=== PATIENT | female | born 1985 | race Caucasian/White ===

== ENCOUNTER 2016-11-16 20:19 | Emergency (ER) | payer SELFPAY ==
[2016-11-16 20:26] VITALS: BP 149/88
--- NOTE | 2016-11-16 20:50 | UC ---
Epistaxis Nasal HPI - HPI Summary HPI Summary: patient reports falling while sleep walking this am---has a bruise and laceration on her nose - History of Current Complaint Chief Complaint: UCTrauma Stated Complaint: FACIAL BRUISE Time Seen by Provider: 11/16/16 20:40 Hx Obtained From: Patient Hx Last Menstrual Period: 6 yrs ago ?: No Onset/Duration: Sudden Onset, Lasting Hours Timing: Constant Severity Initially: Moderate Severity Currently: Moderate Aggravating Factor(s): Nasal Trauma Associated Signs And Symptoms: Positive: Bruising - Allergies/Home Medications Allergies/Adverse Reactions: Allergies Allergy/AdvReac Type Severity Reaction Status Date / Time Latex Allergy Rash Verified 11/16/16 20:26 Home Medications: Home Medications NK [No Home Medications Reported] 11/16/16 [History Confirmed 11/16/16] PMH/Surg Hx/FS Hx/Imm Hx Previously Healthy: No Psychological History: Anxiety, Post Traumatic Stress Disorder, Other Other Psychological History: Substance abuse disorder - Surgical History Surgical History: Unable to Obtain/Confirm Surgery Procedure, Year, and Place: x 2 - Family History Known Family History: Positive: None Family History: no medical issues reported - Social History Occupation: Unemployed Lives: With Family Alcohol Use: unable to obtain Alcohol Amount: unable to obtain Substance Use Type: Cocaine, Heroin, Synthetic Drugs, Prescribed Substance Use Comment - Amount & Last Used: today Smoking Status (MU): Heavy Every Day Tobacco Smoker Household Exposure Type: Cigarettes - Immunization History Most Recent Tetanus Shot: less then 5 yrs Review of Systems Constitutional: Negative Skin: Bruising, Other - laceration on top/extending to left side of nose Eyes: Negative ENT: Negative Respiratory: Negative Cardiovascular: Negative Gastrointestinal: Negative Genitourinary: Negative Motor: Negative Neurovascular: Negative Musculoskeletal: Negative Neurological: Negative Psychological: Negative All Other Systems Reviewed And Are Negative: Yes Physical Exam Triage Information Reviewed: Yes Appearance: Ill-Appearing - chronic, Pain Distress, Thin Vital Signs: Initial Vital Signs Temp 97.9 F 11/16/16 20:20 Pulse 128 11/16/16 20:20 Resp 18 11/16/16 20:20 BP 149/88 11/16/16 20:20 Pulse Ox 97 11/16/16 20:20 Vital Signs Reviewed: Yes Eye Exam: Normal Eyes: Positive: Conjunctiva Clear, Other: - perrla, eomi ENT Exam: Normal ENT: Positive: Normal ENT inspection, Pharynx normal, TMs normal. Negative: Nasal congestion, Nasal drainage, Trismus, Muffled/hoarse voice Dental Exam: Normal - negative for nasal hematoma Neck exam: Normal Neck: Positive: Supple, Nontender Respiratory Exam: Normal Respiratory: Positive: Chest non-tender, Lungs clear, Normal breath sounds, No respiratory distress, No accessory muscle use Cardiovascular Exam: Normal Cardiovascular: Positive: RRR, No Murmur, Pulses Normal, Brisk Capillary Refill Musculoskeletal Exam: Normal Musculoskeletal: Positive: Strength Intact, ROM Intact, No Edema Neurological Exam: Normal Neurological: Positive: Alert, Muscle Tone Normal, Fatigued Psychological Exam: Normal Psychological: Positive: Normal Response To Family Skin: Positive: Other - 4 cm curse laceration on top of nose bridge leaning toward left side of nose Procedures - Laceration/Wound Repair 1 Location: face Description: Linear Length, Depth and Shape: curved Betadine Prep?: No Irrigated w/ Saline (ccs): 250 Laceration/Wound Explored: clean Closure: SteriStrips - patient refused sutures Layer Closure?: No Sterile Dressing Applied?: No Epistaxis Nasal Course/Dx - Course Course Of Treatment: steri strip repair of nose, ice for contusion, follow with pcp - Differential Dx/Diagnosis Differential Diagnosis/HQI/PQRI: Trauma, Other - hypertension due to cicumstance no history, polysubstance dependence Provider Diagnoses: facial contusion, 4 cm laceration steri repair, htn due to circumstance no history, polysubstance addiction disorder Discharge - Discharge Plan Condition: Stable Disposition: HOME Patient Education Materials: Steristrips (ED), Nasal Contusion (ED) Forms: *Work Release Referrals: [facility] [Provider Group] - If Needed
--- NOTE | 2016-11-16 21:41 | RAD ---
Indication: Injury with laceration across the nose. Comparison: No relevant prior exams available [place] [facility] [place]. Technique: Routine views of the nasal bones. AP, Snow, and bilateral oblique orbital views obtained. Report: Intact nasal bones. Soft tissue swelling over the bridge of the nose. The orbital margins and zygomatic arches appear intact. No facial fracture evident. LEFT nose nare piercing noted. Normally aerated paranasal sinuses. Mild leftward deviation of the nasal septum. IMPRESSION: Negative for nasal bone or orbital margin fracture.
--- NOTE | 2016-11-16 21:41 | RAD ---
Indication: Injury with laceration across the nose. Comparison: No relevant prior exams available on the [facility] [place] for comparison. Technique: Routine views of the nasal bones. AP, Snow, and bilateral oblique orbital views obtained. Report: Intact nasal bones. Soft tissue swelling over the bridge of the nose. The orbital margins and zygomatic arches appear intact. No facial fracture evident. LEFT nose nare piercing noted. Normally aerated paranasal sinuses. Mild leftward deviation of the nasal septum. IMPRESSION: Negative for nasal bone or orbital margin fracture.
[2016-11-16] MEDS ORDERED: Benzoin Compound STICK TOPICAL ONE (21:49)
== END 2016-11-16 22:15 | disposition home or self-care (01) ==
LOC: UCEAST 20:19
DX: S01.81XA Laceration without foreign body of other part of head, initial encounter (principal); I10 Essential (primary) hypertension; F41.9 Anxiety disorder, unspecified; F43.10 Post-traumatic stress disorder, unspecified; F12.90 Cannabis use, unspecified, uncomplicated; F11.90 Opioid use, unspecified, uncomplicated; F17.210 Nicotine dependence, cigarettes, uncomplicated; Z91.040 Latex allergy status; W18.30XA Fall on same level, unspecified, initial encounter; Y93.9 Activity, unspecified; Y92.9 Unspecified place or not applicable
CPT/HCPCS: 12011; 70160; 70200; 99211; G0463

== ENCOUNTER 2018-07-16 16:10 | Emergency (ER) | payer OTHER ==
--- NOTE | 2018-07-16 17:04 | ED ---
Lower Extremity - HPI Summary HPI Summary: Pt is a 32 y/o female who presents to the ED c/o groin pain. For the past 4 days shes had intermittent right groin pain. Pt describes the pain as cramping and is made worse with movement, particularly standing up or sitting down. When she is still she denies any pain but it always returns with movement. She denies any fall or physical trauma. Pt also c/o numbness and paresthesia of her LLE, and an area of induration to her left anterior chest. She is an IV drug user and reports injecting methamphetamine and heroin into this site. Pt also notes that she sometimes injects into her lateral right groin crease. Pt also states that she has been fatigued lately due to recent stress with her boyfriend. Pt denies any fever, chills, diaphoresis, erythema of eyes, sore throat, CP, SOB, cough, abdominal pain, N/V, dysuria, hematuria, myalgia, edema , rash, or dizziness. PMHx opiate dependence, Hep C. She sees Avelina Redd NP at [facility]. - History of Current Complaint Chief Complaint: EDGeneral Stated Complaint: SOMETHING WRONG WITH LEG/GENITAL AREA PER PT Time Seen by Provider: 07/16/18 16:57 Hx Obtained From: Patient Hx Last Menstrual Period: 6 yrs ago Mechanism Of Injury: Unknown Onset of Pain: Days - 4 Onset/Duration: Still Present Severity Currently: None Pain Intensity: 0 Pain Scale Used: 0-10 Numeric Timing: Intermittent Location: Is Discrete @ - right groin Aggravating Factor(s): Movement - Allergies/Home Medications Allergies/Adverse Reactions: Allergies Allergy/AdvReac Type Severity Reaction Status Date / Time latex Allergy Rash Verified 07/16/18 19:18 Home Medications: Home Medications Gabapentin 800 mg PO QID 07/16/18 [History Confirmed 07/16/18] PMH/Surg Hx/FS Hx/Imm Hx Sensory History: Denies: Hx Legally Blind, Hx Deafness Opthamlomology History: Denies: Hx Legally Blind Neurological History: Denies: Hx Seizures Psychiatric History: Reports: Hx Substance Abuse Denies: Hx Anxiety, Hx Depression - Surgical History Surgery Procedure, Year, and Place: x 2 Infectious Disease History: Unable to Obtain/Confirm Infectious Disease History: Reports: Hx Hepatitis - C Denies: Traveled Outside the [place] in Last 30 Days - Family History Known Family History: Negative: Other - suicides - Social History Alcohol Use: Occasionally Alcohol Amount: unable to obtain Hx Substance Use: Yes Substance Use Type: Reports: Cocaine, Heroin, Synthetic Drugs, Prescribed Substance Use Comment - Amount & Last Used: today Hx Tobacco Use: Yes Smoking Status (MU): Heavy Every Day Tobacco Smoker Review of Systems Positive: Fatigue. Negative: Fever, Chills, Skin Diaphoresis Negative: Erythema Negative: Sore Throat Negative: Chest Pain Negative: Shortness Of Breath, Cough Negative: Abdominal Pain, Vomiting, Nausea Negative: dysuria, hematuria Positive: Myalgia - right groin pain. Negative: Edema Negative: Rash Neurological: Other - NEGATIVE: dizziness Positive: Paresthesia - LLE, Numbness - LLE All Other Systems Reviewed And Are Negative: Yes Physical Exam - Summary Physical Exam Summary: Constitutional: Well-developed, Well-nourished, Alert. (-) Distressed Skin: Warm, Dry, Numerous track laureano and picking behavior scars over BLE, Indurated area on left upper anterior chest wall, No fluctuance or overlying erythema HENT: Normocephalic; Atraumatic Eyes: Conjunctiva normal Neck: Musculoskeletal ROM normal neck. (-) JVD, (-) Stridor, (-) Tracheal deviation Cardio: Rhythm regular, rate normal, Heart sounds normal; Intact distal pulses; The pedal pulses are 2+ and symmetric. Radial pulses are 2+ and symmetric. (-) Murmur Pulmonary/Chest wall: Effort normal. (-) Respiratory distress, (-) Wheezes, (-) Rales Abd: Soft, (-) tenderness, (-) Distension, (-) Guarding, (-) Rebound Musculoskeletal: (-) Edema Lymph: (-) Cervical adenopathy, (+) Inguinal lymphadenopathy Neuro: Alert, Oriented x3 Psych: Mood and affect Normal Triage Information Reviewed: Yes Vital Signs On Initial Exam: Initial Vitals Temp Pulse Resp BP Pulse Ox 98.8 F 102 20 124/86 97 07/16/18 16:13 07/16/18 16:13 07/16/18 16:13 07/16/18 16:13 07/16/18 16:13 Vital Signs Reviewed: Yes Diagnostics - Vital Signs Vital Signs Temp Pulse Resp BP Pulse Ox 07/16/18 16:13 98.8 F 102 20 124/86 97 - Laboratory Result Diagrams: 07/16/18 17:45 07/16/18 17:45 Lab Statement: Any lab studies that have been ordered have been reviewed, and results considered in the medical decision making process. - Radiology Stormy Doppler Radiology Interpretation Completed By: Radiologist Summary of Radiographic Findings: NO EVIDENCE FOR DEEP VENOUS THROMBOSIS. ED physician has reviewed this report. - EKG 18:20 Cardiac Rate: Tachycardia - 102 bpm EKG Rhythm: Sinus Tachycardia Summary of EKG Findings: No STEMI Re-Evaluation - Re-Evaluation First Eval Re-Evaluation Time: 21:42 Comment: The patient wants to leave against medical advice because she is worried about going through withdrawal. I suggested that we can help by providing Suboxone or Opiates, with she declined. She is unwilling to wait for MRI results. I informed her of the risks of disability, , amputation, and inability to walk. I asked her to return to the ED immediately if she changes her mind. Lower Extremity Course/Dx - Course Course Of Treatment: Pt is a 32 y/o female who presents to the ED c/o groin pain. For the past 4 days shes had intermittent right groin pain. Pt describes the pain as cramping and is made worse with movement, particularly standing up or sitting down. When she is still she denies any pain but it always returns with movement. She denies any fall or physical trauma. Pt also c/o numbness and paresthesia of her LLE, and an area of induration to her left anterior chest. She is an IV drug user and reports injecting methamphetamine and heroin into this site. Pt also notes that she sometimes injects into her lateral right groin crease. Pt also states that she has been fatigued lately due to recent stress with her boyfriend. Pt denies any fever, chills, diaphoresis, erythema of eyes, sore throat, CP, SOB, cough, abdominal pain, N/V, dysuria, hematuria, myalgia, edema, rash, or dizziness. An EKG reveals sinus tachycardia 102 bpm, no STEMI. Stormy Doppler reveals, per radiologist, NO EVIDENCE FOR DEEP VENOUS THROMBOSIS. Test results with no significant abnormalities. In the ED course the patient was given Vancomycin, Sodium Chloride, Ondansetron, and Morphine. The patient wants to leave AMA. I informed her that she risks disability, , amputation, and the inability to walk if she does not take my recommendation to stay in the hospital for use of IV antibiotics. She states that she is worried about withdrawal, and she was informed that we can combat the withdrawal with Suboxone and Opiates, but she refused. I advised that she return to the ED if she changes her mind. Patient will be discharged with prescription for Amoxicillin and follow up from [facility] and Avelina Redd. The patient is agreeable with this plan. - Diagnoses Provider Diagnoses: Septic arthritis Discharge - Sign-Out/Discharge Documenting (check all that apply): Patient Departure - discharge Patient Received Moderate/Deep Sedation with Procedure: No - Discharge Plan Condition: Fair Disposition: AGAINST MEDICAL ADVICE Prescriptions: Amoxicillin/Clavulanate TAB* [Augmentin TAB 875*] 875 mg PO BID #42 tab Patient Education Materials: Septic Arthritis (DC) Referrals: [facility],. [Z.BUSINESS, APPLICATION, OTHER] - Avelina Redd, BUSINESS PROCESS COORDINATOR [Nurse Practitioner] - Additional Instructions: You are leaving against medical advice. You are risking disability, , inability to walk, and amputation. Please return to the ED immediately if you change your mind. Please follow up with Avelina Redd as soon as possible - Attestation Statements Document Initiated by Scribe: Yes Documenting Scribe: Ryanne Sanchez Provider For Whom Katie is Documenting (Include Credential): Forest Fernandez MD Scribe Attestation: Ryanne Tinsley, scribed for Forest Fernandez MD on 07/16/18 at 2155. Status of Scribe Document: Ready
[2018-07-16 18:01] LABS: ABS Basophils 0 10^3/ul (0-0.2); ABS Eosinophils 0.1 10^3/ul (0-0.6); ABS Lymphocytes 2.7 10^3/ul (1.0-4.8); ABS Monocytes 0.8 10^3/ul (0-0.8); ABS Neutrophils 6.8 10^3/ul (1.5-7.7); ABS Nucleated RBC 0 10^3/ul; Eosinophil % 1.3 %; Hematocrit 36 % (33-41); Hemoglobin 12.3 g/dL (12.0-16.0); Lymphocyte % 25.5 %; Mean Corpuscular HGB Conc 34 g/dL (31-36); Mean Corpuscular Hemoglobin 29 pg (27-31); Mean Corpuscular Volume 84 fL (80-97); Mean Platelet Volume 8.2 fL (7.4-10.4); Nucleated Red Blood Cells % 0; Platelet Count 276 10^3/uL (150-450); Red Blood Count 4.27 10^6 /uL (3.70-4.87); Red Cell Distribution Width 13 % (10.5-15); White Blood Count 10.4 10^3/uL (3.5-10.8)
[2018-07-16] MEDS ORDERED: Vancomycin(*) 1,250 MG in NS 0.9% 250 ML* 250 ML IVPB ONE (18:04)
[2018-07-16] MEDS ORDERED: NS 0.9% 1000 ML** 2,000 ML IV ONE (18:04)
[2018-07-16 18:15] LABS: Activated Partial Thrombo Time 31.9 seconds (26.0-36.3); Albumin 3.7 g/dL (3.2-5.2); Albumin/Globulin Ratio 1.1 (1-3); BUN/Creatinine Ratio 14.1 (8-20); C Reactive Protein 51.91 mg/L (<8.01); Calcium 9.3 mg/dL (8.6-10.3); EGFR African American 130.1 (>60); EGFR Non-African American 107.5 (>60); Globulin 3.4 g/dL (2-4); INR 0.96 (0.77-1.02); Potassium 3.8 mmol/L (3.5-5.0); Total Bilirubin 0.3 mg/dL (0.2-1.0); Total Protein 7.1 g/dL (6.4-8.9)
[2018-07-16] MEDS ORDERED: Ondansetron INJ* 2 MG/ML VIAL IV ONE (18:23)
[2018-07-16] MEDS ORDERED: Morphine 4 MG/ML VIAL (1 ml) 4 MG/ML VIAL IV ONE (18:24)
[2018-07-16 21:57] VITALS: BP 0/0
== END 2018-07-16 21:56 | disposition left against medical advice (07) ==
LOC: ED 16:10
DX: M00.9 Pyogenic arthritis, unspecified (principal); R00.0 Tachycardia, unspecified; Z72.0 Tobacco use; B19.20 Unspecified viral hepatitis C without hepatic coma; Z53.21 Procedure and treatment not carried out due to patient leaving prior to being seen by health care provider
CPT/HCPCS: 36415; 80053; 83605; 85025; 85610; 85730; 86140; 87040; 93005; 96361; 96365; 96366; 99284; J2270; J2405; J3370

== ENCOUNTER 2018-07-19 16:48 | Observation (INO) | payer OTHER ==
[2018-07-19] MEDS ORDERED: Vancomycin(*) 1,250 MG in NS 0.9% 250 ML* 250 ML IVPB ONE (16:49)
--- NOTE | 2018-07-19 17:18 | ED ---
Skin Complaint - HPI Summary HPI Summary: Pt is a 32 y/o F presenting to the ED with a chief complaint of an abscess on her R knee. She was referred from [facility] for R hip effusion. She also reports some lower abd pain. Pt denies any fever, chills, erythema of eyes, sore throat, CP, SOB, cough, N/V, dysuria, hematuria, myalgia, edema, or dizziness. - History of Current Complaint Chief Complaint: EDExtremityLower Time Seen by Provider: 07/19/18 16:54 Stated Complaint: ABD PAIN PER PT Hx Obtained From: Patient Hx Last Menstrual Period: 6 yrs ago Onset/Duration: Started Days Ago, Still Present Skin Exposure Onset/Duration: Days Ago Timing: Constant, Lasting Days Onset Severity: Mild Current Severity: None Pain Intensity: 0 Pain Scale Used: 0-10 Numeric Skin Location: Other: - R knee Character: Swelling, Pruritus, Pain, Redness, Raised Aggravating Symptom(s): Touch Alleviating Symptom(s): Nothing Associated Signs & Symptoms: Abdominal Pain - Allergy/Home Medications Allergies/Adverse Reactions: Allergies Allergy/AdvReac Type Severity Reaction Status Date / Time latex Allergy Rash Verified 07/19/18 16:59 PMH/Surg Hx/FS Hx/Imm Hx Cardiovascular History: Denies: Hx Pacemaker/ICD Sensory History: Denies: Hx Legally Blind, Hx Deafness, Hx Hearing Aid Opthamlomology History: Denies: Hx Legally Blind Neurological History: Denies: Hx Seizures Psychiatric History: Reports: Hx Substance Abuse Denies: Hx Anxiety, Hx Depression, Hx Panic Disorder - Surgical History Surgery Procedure, Year, and Place: x 2 Infectious Disease History: No Infectious Disease History: Reports: Hx Hepatitis - C Denies: Traveled Outside the [place] in Last 30 Days - Family History Known Family History: Negative: Other - suicides - Social History Alcohol Use: Occasionally Alcohol Amount: unable to obtain Hx Substance Use: Yes Substance Use Type: Reports: Cocaine, Heroin, Synthetic Drugs, Prescribed Substance Use Comment - Amount & Last Used: today Hx Tobacco Use: Yes Smoking Status (MU): Heavy Every Day Tobacco Smoker Review of Systems Negative: Fever, Chills Negative: Erythema Negative: Sore Throat Negative: Palpitations, Chest Pain Negative: Shortness Of Breath, Cough Positive: Abdominal Pain. Negative: Vomiting, Nausea Negative: dysuria, hematuria Negative: Myalgia, Edema Positive: Other - abscess on R knee. Negative: Rash Neurological: Negative - dizziness All Other Systems Reviewed And Are Negative: Yes Physical Exam - Summary Physical Exam Summary: Constitutional: Well-developed, Well-nourished, Alert. (-) Distressed Skin: Warm, Dry. Abscess on R knee. HENT: Normocephalic; Atraumatic Eyes: Conjunctiva normal Neck: Musculoskeletal ROM normal neck. (-) JVD, (-) Stridor, (-) Tracheal deviation Cardio: Rhythm regular, rate normal, Heart sounds normal; Intact distal pulses; The pedal pulses are 2+ and symmetric. Radial pulses are 2+ and symmetric. (-) Murmur Pulmonary/Chest wall: Effort normal. (-) Respiratory distress, (-) Wheezes, (-) Rales Abd: Soft, (-) tenderness, (-) Distension, (-) Guarding, (-) Rebound Musculoskeletal: (-) Edema Lymph: (-) Cervical adenopathy Neuro: Alert, Oriented x3 Psych: Mood and affect Normal Triage Information Reviewed: Yes Vital Signs On Initial Exam: Initial Vitals Temp Pulse Resp BP Pulse Ox 97.0 F 92 14 117/84 97 07/19/18 16:56 07/19/18 16:56 07/19/18 16:56 07/19/18 16:56 07/19/18 16:56 Vital Signs Reviewed: Yes Diagnostics - Vital Signs Vital Signs Temp Pulse Resp BP Pulse Ox 07/19/18 16:56 97.0 F 92 14 117/84 97 - Laboratory Result Diagrams: 07/19/18 17:39 Lab Statement: Any lab studies that have been ordered have been reviewed, and results considered in the medical decision making process. Course/Dx - Course Course Of Treatment: Pt is a 32 y/o F presenting to the ED with a chief complaint of an abscess on her R knee. She was referred from [facility]. Pt denies any fever, chills, erythema of eyes, sore throat, CP, SOB, cough, abdominal pain, N/V, dysuria, hematuria, myalgia, edema, or dizziness. Compared to the exam of her last visit, her hip pain and inguinal lymphadenopathy have resolved. She developed an abscess that she subsequently drained, which could have resolved her presentation, but she has a small hip effusion that could be seeded by bacteria. She should be admitted to the hospital for infectious disease consultation. The pt is agreeable with this plan and will be admitted under Avelina Redd NP, with a dx of R hip effusion. - Diagnoses Provider Diagnoses: Right hip joint effusion Discharge - Sign-Out/Discharge Documenting (check all that apply): Patient Departure - Discharge Plan Condition: Stable Disposition: ADMITTED TO [facility] - Attestation Statements Document Initiated by Scribe: Yes Documenting Scribe: Zeynep Bull Provider For Whom Katie is Documenting (Include Credential): Forest Fernandez MD. Scribe Attestation: Zeynep Tinsley, scribed for Forest Fernandez MD. on 07/19/18 at 1757. Status of Scribe Document: Ready
[2018-07-19 17:50] LABS: ABS Basophils 0.1 10^3/ul (0-0.2); ABS Eosinophils 0.2 10^3/ul (0-0.6); ABS Lymphocytes 2.8 10^3/ul (1.0-4.8); ABS Monocytes 0.6 10^3/ul (0-0.8); ABS Nucleated RBC 0 10^3/ul; Hematocrit 38 % (33-41); Lymphocyte % 36.9 %; Mean Corpuscular HGB Conc 35 g/dL (31-36); Mean Corpuscular Hemoglobin 29 pg (27-31); Mean Corpuscular Volume 84 fL (80-97); Mean Platelet Volume 7.5 fL (7.4-10.4); Nucleated Red Blood Cells % 0; Platelet Count 375 10^3/uL (150-450); Red Blood Count 4.51 10^6 /uL (3.70-4.87); Red Cell Distribution Width 12 % (10.5-15); White Blood Count 7.6 10^3/uL (3.5-10.8)
[2018-07-19] MEDS ORDERED: Piperacillin/Tazobac ADVAN(*) 3.375 GM in NS 0.9% 100 ML* 100 ML IVPB ONE (18:09)
[2018-07-19 18:14] LABS: Albumin 3.8 g/dL (3.2-5.2); Albumin/Globulin Ratio 1.1 (1-3); BUN/Creatinine Ratio 10.6 (8-20); C Reactive Protein 19.32 mg/L (<8.01); Calcium 9.2 mg/dL (8.6-10.3); EGFR African American 125.6 (>60); EGFR Non-African American 103.8 (>60); Globulin 3.5 g/dL (2-4); Potassium 3.7 mmol/L (3.5-5.0); Total Bilirubin 0.2 mg/dL (0.2-1.0); Total Protein 7.3 g/dL (6.4-8.9)
[2018-07-19] MEDS ORDERED: HYDROmorphone TAB* 4 MG PO ONE (18:18)
[2018-07-19] MEDS ORDERED: HYDROmorphone INJ1* 1 MG/ML SYRINGE IV SLOW PU PRN (18:20)
[2018-07-19 18:21] LABS: INR 0.94 (0.77-1.02)
[2018-07-19] MEDS ORDERED: LORazepam TAB(*) 0.5 MG PO PRN (18:21)
[2018-07-19] MEDS ORDERED: cloNIDine TAB* 0.1 MG PO PRN (18:25)
[2018-07-19] MEDS ORDERED: Acetaminophen TAB* 325 MG PO PRN (18:29)
[2018-07-19] MEDS ORDERED: Ondansetron INJ* 2 MG/ML VIAL IV PRN (18:29)
[2018-07-19] MEDS ORDERED: Nicotine Inhaler* 10 MG AMP INH PRN (18:35)
[2018-07-19] MEDS ORDERED: Zosyn per Pharmacy* NOTE FOLLOW UP SCH (19:00)
[2018-07-19] MEDS ORDERED: Vancomycin per Pharmacy* NOTE FOLLOW UP SCH (19:00)
[2018-07-19] MEDS ORDERED: Nicotine Inhaler* 10 MG AMP ONE (19:00)
[2018-07-19] MEDS ORDERED: Mouth Piece, Nicotine* 1 EACH CARTRIDGE ONE (19:01)
--- NOTE | 2018-07-19 19:12 | PN ---
Hospitalist Progress Note Date of Service: 07/19/18 ADDENDUM TO HISTORY AND PHYSICAL: Patient has multiple localized areas of potential infection/abscess to RLE, not requiring incision and drainage. Treated outpatient with doxycycline, now on Vanco and Zosyn. Continue warm compresses, as two have actively drained on their own. Continue to monitor for potential need to I&D.
--- NOTE | 2018-07-19 21:11 | HP ---
CC: [facility] * HISTORY AND PHYSICAL: DATE OF ADMISSION: 07/19/18 PROVIDER: Tuan Iyer NP. ATTENDING PHYSICIAN: Dr. Sol Noble * (dictated by Tuan Iyer NP). PRIMARY CARE PROVIDER: [facility] Whalen. CONSULTING PROVIDERS: Dr. Lv Camacho, infectious disease; Dr. Adonay Oseguera, pain management. CHIEF COMPLAINT: Right hip pain and hip perfusion. HISTORY OF PRESENT ILLNESS: Ms. Smith is a 32-year-old female who presents today for further evaluation of right hip perfusion seen on MRI of the hip on . Fabiola was seen by myself in the outpatient setting at the [facility] last week on 07/13/18. At that time, Fabiola expressed concern for a right fan area of inflammation that appeared to be an early abscess. She has a history of injecting heroin and methamphetamines into her lower extremities. At that time, she also expressed concern for a painless lump in her left chest wall that is secondary to injecting crystal meth. We discussed the concern that these areas may represent abscesses that may require incision and drainage, which she did not want. She was started on doxycycline at that time and encouraged to follow up with a provider or go to urgent care or the ER. On Thursday, she was noted by staff to be limping and she had stated increased pain to the right hip and groin. This persisted on the when I saw her again during my rounds at the [facility]. At that time, I expressed concern that she may have an infection or clot of the groin. A muscle pull was also in the differential. At that time, she allowed me to look at her right groin more closely and it was concerning as there were track laureano along the upper aspect of the groin near the hip joint. There was clear pain with abduction and adduction and at that time, she was recommended to go to the ER or urgent care for further evaluation. On 07/16/18, the pain persisted and she did decide to go to the ER with a friend and was evaluated by Dr. Fernandez. She did have a Doppler of the right lower extremity, which was negative for deep venous thrombosis; however, given the fact that she at that time now had a prominent right inguinal lymph node and persistent pain, a right hip MRI was recommended and completed. However, the patient became increasingly more anxious having to stay in the ER and decided to leave A prior to receiving the MRI results. She left and the MRI results returned with concern for muscle edema involving the right iliopsoas with concern for potential myositis. There was also evidence of a small right hip effusion with the note that septic arthritis could not be excluded. I did receive these results today on 07/19/18 and reviewed them with Dr. Lv Camacho of infectious disease, who recommended that the patient be brought in at least for right hip joint aspiration to rule out septic joint. We were able to contact the patient and she did agree to come in to the hospital for at least an overnight admission for this test, although she did express her severe anxiety over this. Fabiola states that after she left the ER on Thursday, her right groin and hip pain did markedly improve. She did receive vancomycin during that visit. She also states that she had an abscess drained on the right lateral aspect of her right lower leg near the knee. 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 Today, she cites some left lower extremity discomfort, but feels this is a muscle overuse injury from her limping last week. She has no other concerns and is reluctant to stay secondary to the fact that she feels better and is afraid to have her right hip aspirated. She denies feeling any fever or chills, any chest pain, shortness of breath, abdominal pain, nausea, vomiting, diarrhea, or any other acute concerns. PAST MEDICAL HISTORY: 1. History of provoked PE following a surgery. She states this occurred "a few years ago." 2. History of x2. 3. History of late-term at 24 weeks. 4. She states that she was told she has COPD by an urgent care doctor. 5. Tobacco dependence disorder. 6. History of opiate use disorder. 7. History of methamphetamine use disorder. MEDICATIONS: She is not on any regular medications. ALLERGIES: She reports having a localized reaction to LATEX TAPE several years ago. FAMILY HISTORY: Denies any known family medical history. SOCIAL HISTORY: She reports vryl-l-rrxq-a-day smoking history. She denies alcohol use. She reports heroin and methamphetamine injection. Her last heroin use was today around 1 p.m. and her last methamphetamine injection was last week on . 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 She has a partner who is currently in rehab. She lists her mother, Henny Toledo, as her surrogate decision maker in the event of emergency. Her mother can be reached at [phone]. REVIEW OF SYSTEMS: As per HPI. PHYSICAL EXAMINATION VITAL SIGNS: Temperature 97.9, pulse rate 103, respiratory rate 18, blood pressure 118/74, and O2 saturation is 100% on room air. HEENT: Head is atraumatic, normocephalic. Pupils are equal and round. Extraocular movements are intact. Sclerae are anicteric. Oral mucosa is moist. There is no oropharyngeal erythema or exudate. Dentition is poor. NECK: With full range of motion. There is no JVD. There is no lymphadenopathy appreciated. RESPIRATORY: Lungs are clear to auscultation. CHEST: Without tenderness or lymphadenopathy. There is a left chest wall mobile mass that feels like it might be a cyst. There is evidence of injection sites along the chest wall. CARDIAC: Heart sounds S1 and S2 are normal. Regular rate and rhythm. Rate is slightly tachycardic. Apical pulse of 102. There is no lower extremity edema. Pedal pulses are 2+ and symmetric. No murmurs, rubs, or gallops appreciated. ABDOMEN: Soft, nontender, nondistended with normoactive bowel sounds. There is no hepatosplenomegaly. There is no suprapubic tenderness. MUSCULOSKELETAL: There is full range of motion in all 4 extremities. No pain elicited with abduction or adduction of either hip joint, knee joints, or ankle joints. There is no clubbing or cyanosis. NEURO: Cranial nerves II through XII are grossly intact. She is able to move all extremities. Sensation is intact to light touch to the lower extremities. Speech is clear. She is alert and oriented x3. PSYCH: She is anxious, but affect is otherwise appropriate. SKIN: There is evidence of track laureano to all 4 extremities and the chest wall. There are areas of red induration to the right fan and the lateral right calf and near the knee. There is a palpable inguinal lymph node in the right groin. DIAGNOSTIC STUDIES/LAB DATA: MRI from 07/16/18 as per above. CBC drawn today shows WBC 7.6, hemoglobin 13, hematocrit 38, platelet count 375. INR is 0.94. CMP: Sodium 136, potassium 3.7, chloride 101, carbon dioxide 28, BUN 7, creatinine 0.66, glucose 108, lactic acid 1.8, calcium 9.2. Total bilirubin 0.2, AST 20, ALT 26, alk phos 148. Troponin 0.00. CRP 19. Old medical records were reviewed. ASSESSMENT AND PLAN: This is a 32-year-old female who presents today with right hip effusion, previous right groin pain that has improved, but with concern for potential joint infection or psoas abscess. She will be admitted and placed under observation status to obtain a right hip aspiration with synovial fluid testing to rule out any infection. She is at risk due to her history of IV drug use. 1. Right hip effusion with previous right groin pain. Plan as per above. I have discussed the case with Dr. Camacho, who agrees to see the patient in consult. I have also talked with radiology and spoken with one of the ultrasound technologists, who stated to keep the patient n.p.o. and made the radiologist aware of the need for the procedure tomorrow. This has been discussed with Fabiola, who is in agreement. I will also consult with ortho to make them aware of the patient, although we will await the aspiration results before further action. She has been started on vancomycin and I have added on Zosyn until ID is able to consult. 2. History of IV drug use. Fabiola did last use heroin today at 1 p.m. and is likely going to go in withdrawal later today. I have given her a dose of IV Dilaudid to help foreman off any further pain and to help maintain comfort. I have asked Dr. Oseguera to consult on this patient to put her on methadone while she is here in the hospital. She is adamant that she does not want to be on buprenorphine medication-assisted therapy, although she will consider methadone in the future. This can be pursued further as an outpatient, but in the meantime, plan to keep the patient stable and anticipate withdrawal during her time here. She has p.r.n. medications overnight including lorazepam and clonidine as well as available hydromorphone until she is able to meet with Dr. Oseguera in the morning for methadone initiation. Pain appears to be well controlled with the hydromorphone and previous heroin use. Her IV Dilaudid is ordered, but only for severe pain or inability to take p.o. medication. This has been discussed with the nursing staff as well as the associate professor physician in order to monitor the patient's progress and status overnight. 3. History of pulmonary embolism. It appears to be a provoked situation as she was not placed on any maintenance anticoagulation. I will hold on anticoagulation while she is here as she is planning to have a joint aspiration tomorrow; however, if she does stay beyond tomorrow in the event of a positive test, then she will likely need anticoagulation with Lovenox. 4. Nicotine dependence. She will receive nicotine replacement therapy via the inhaler that can be used p.r.n. 5. DVT prophylaxis. As per above. She is encouraged to ambulate. I am avoiding SCDs or BRANDO hose given the multiple wounds to her legs as this will likely contribute to complications. She may benefit from Lovenox should she have a lengthy stay here in the hospital, but we will hold this in the interim period as she is planning to have aspiration of the joint tomorrow. 6. FEN. She is ordered a regular diet, but will be n.p.o. after midnight. 7. Code status. She is a full code. 8. Disposition. Anticipate discharge to home once medically clear. TIME SPENT: Approximately 65 minutes were spent on this admission obtaining history and physical, performing physical examination, and reviewing the plan of care. Plan of care was also reviewed with my attending, Dr. Noble, who is in agreement. TUAN IYER, VICKEY [id number]/CPS #: [id number] RITA
[2018-07-19] MEDS: LORazepam TAB(*) 0.5 MG PO SCH (22:40)
[2018-07-20] MEDS: Vancomycin(*) 1,000 MG in NS 0.9% 250 ML* 250 ML IVPB SCH ×2 (01:32→07:56)
[2018-07-20] MEDS: ZOSYN 3.375 GM Q8H per EXTENDED INFUSION IVPB SCH ×4 (03:30→11:20)
[2018-07-20] MEDS: HYDROmorphone TAB* 2 MG PO PRN ×2 (08:37→11:22)
[2018-07-20] MEDS ORDERED: HYDROmorphone INJ1* 1 MG/ML SYRINGE IV SLOW PU ONE (08:50)
--- NOTE | 2018-07-20 09:03 | PN ---
Hospitalist Progress Note Date of Service: 07/20/18 Fabiola seen this morning, reports aching and pain, appears to be in active withdrawal (clinical opiate withdrawal score aka COWS criteria 11, indicating mild to moderate). Pain likely secondary to withdrawal. Per previous discussion with pharmacy, methadone must be initiated by pain management team. Patient cites previous adverse reactions to buprenorphine. One time order for IV hydromorphone given to treat pain and discomfort. Appreciate pain management consult for methadone recommendations. Continue prn clonidine and lorazepam to help mitigate withdrawal symptoms. POC discussed with nurse Costa and hospitalist ASSOCIATE CHIEF NURSE Arron.
[2018-07-20] MEDS: LORazepam TAB(*) 0.5 MG PO SCH (09:38)
[2018-07-20 11:56] VITALS: BP 126/86
[2018-07-20] MEDS ORDERED: Vancomycin Trough Check NOTE FOLLOW UP ONE (13:30)
--- NOTE | 2018-07-21 05:09 | DS ---
DISCHARGE SUMMARY: DATE OF ADMISSION: 07/19/18 DATE OF DISCHARGE: 07/20/18. She left AMA. PROVIDER: Ysabel Heller NP PRIMARY CARE PROVIDER: [facility] Whalen. ATTENDING PHYSICIAN WHILE IN THE HOSPITAL: Dr. Armstrong * (dictated by Ysabel Heller NP). PRIMARY DIAGNOSES: 1. Possible iliopsoas muscle abscess. 2. Left chest wall abscess. HISTORY OF PRESENT ILLNESS AND HOSPITAL COURSE: Fabiola has a history of IV heroin use and presented to outpatient clinic for evaluation of a right hip effusion seen on the MRI on 07/16/18. On 07/16/18, the patient presented to the emergency room, had a negative DVT study, but had prominent right inguinal lymph node and persistent pain. A right hip MRI was recommended and completed; however, the patient became increasingly more anxious of have to stay in the ER and decided to leave AMA. Prior to receiving the MRI results, the patient left and the MRI results returned with a concern for muscle edema involving the right iliopsoas with a concern for potential myositis. There was also evidence of small right hip effusion with the note that septic arthritis could not be excluded. On 07/19/18, the results were received by [facility] and discussed with Dr. Camacho from Infectious Disease, who recommended that the patient be brought to the emergency room for a right hip joint aspiration to rule out septic joint. The patient did not agree to be seen and evaluated at the hospital for an overnight admission, but expressed her severe anxiety of being admitted. The patient did report that her right hip and groin pain did markedly improve since Thursday after receiving vancomycin during that visit. 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 The patient denies any fever, chills, nausea, vomiting, abdominal pain, diarrhea, or any other acute symptoms; but due to concern for septic hip joint, she was seen and evaluated and admitted to the hospital for further evaluation. The patient did have an ultrasound of the right hip to evaluate for fluid. Radiology reviewed the imaging and determined that there was no fluid to aspirate. They also reported that washing the hip joint with saline would be a low diagnostic yield. The patient was given this information, but also informed that she could have a possibility of a psoas muscle abscess and myositis. The patient reports that she is anxious to leave and does not want to stay in the hospital. I did side consult Dr. Camacho from Infectious Disease, who attempted to see the patient. The patient refused consultation due to the fact that she reports she is leaving. Dr. Camacho recommended that the patient , given the patient's symptoms, would benefit from Augmentin and doxycycline for 14 days. REVIEW OF SYSTEMS: The patient denies fever, chills, nausea, vomiting, or diarrhea. Denies any chest pain or shortness of breath. She denies any hip pain. She is able to flex and extend hip, abduct and adduct her hip without any pain. She is able to walk without a limp. Her pedal pulses are +2 bilaterally. She has no calf tenderness. PHYSICAL EXAM: General: At this time, Ms. Smith is alert and oriented x3. HEENT: Head is atraumatic, normo-cephalic. Eyes: EOMs are intact. Sclerae anicteric and not pale. Oral mucosa appeared to be moist. Neck is supple. Lungs are clear to auscultation bilaterally. No wheezes, rales, or rhonchi. She does have a small swollen area noted to her left upper chest. There is no surrounding redness or no pain with palpation. Cardiac: S1, S2. Regular rate and rhythm. No murmurs, rubs, or gallops. Abdomen: Soft and nontender. Bowel sounds are present x4. Skin: She does have several puncture laureano noted to her upper chest. Neurologic: She is awake, alert, and oriented x3. Speech is clear. Thought process is intact. STUDIES COMPLETED WHILE IN THE HOSPITAL: She had a soft tissue ultrasound on to a clinical concern within the subcutaneous tissue plane is a soft tissue edema with loosely loculated 3.1 x 1.1 x 1.5 cm complex fluid collection consistent with early abscess formation giving the clinical context. She had a soft tissue ultrasound of the right hip. There is no conspicuous fluid by ultrasound to facilitate ultrasound-guided joint aspiration. On review of 07/16/18 MRI, the volume of fluid on the right hip is symmetric with the left and within physiologic range. On the basis of fluoroscopy-guided right hip aspiration would also likely be low yield. On the prior MRI, there is tissue edema within the surrounding the right iliopsoas distally extending into the lesser trochanter concerning for potential myositis. DISCHARGE MEDICATIONS: [place] Medications: 1. Doxycycline 100 mg p.o. b.i.d. x14 days. 2. Augmentin 500 mg p.o. b.i.d. x14 days. Continued Home Medications: Acetaminophen 650 mg p.o. q.4 hours as needed for pain. At this time, Ms. Smith wants to leave against medical advice. The patient was offered option of staying for infectious disease consult as well as further evaluation of possible myositis and IV antibiotics. The patient has declined this. The patient was also recommended further evaluation of left chest, possible left upper chest abscess. The patient declined any further workup of left chest abscess. I have reviewed with the patient the risks of leaving against medical advice, which include loss of limb, worsening infection, and possible sepsis which could lead to or loss of current lifestyle. The patient verbalized understanding and continues to wish to leave against medical advice. At this time, Ms. Smith is going to leave against medical advice. DISCHARGE PLAN: The patient is leaving AMA. Possible myositis versus iliopsoas muscle abscess, left chest abscess. The patient was recommended to stay for further IV antibiotics, and at this time, the patient is declining to stay for IV antibiotics and infectious disease consult. I did consult Dr. Camacho from Infectious Disease as a side consult, who recommended doxycycline and Augmentin for 14 days. These prescriptions were provided to the patient. The patient was instructed to follow up with [facility] for further treatment of her possible psoas muscle abscess/ myositis/left upper chest abscess. The patient verbalized understanding. I would recommend that she follow up with [facility] within 2 days. Again, the patient is leaving against medical advice. Options were discussed with the patient, but continues to refuse to have further evaluation and treatment at this time. I have recommended again that she follow up with [facility] in 2 days. The patient was also instructed to return to the emergency room if she develops fever, chills, significant pain, any changes in her symptoms, or any other concerns. She did verbalize understanding. The patient is alert and oriented x3 at the time of discharge and is able to make rational decisions and does understand that her decision to leave against medical advice includes the risk of worsening infection and the risk of . TIME SPENT: Time spent on this against medical advice discharge was approximately 45 minutes, greater than half that time was spent on the patient discussing options for continued care and risk of leaving against medical advice. CONDITION ON DISCHARGE: Fair. DISPOSITION ON DISCHARGE: To home. I have discussed this with my attending, Dr. Emiliano Armstrong. He is in agreement with my plan. YSABEL HELLER, VICKEY [id number]/CPS #: [id number] RITA
== END 2018-07-20 14:00 | disposition left against medical advice (07) ==
LOC: ED 16:48 → SSU 17:29
PROVIDERS: ADMIT Internal Medicine; ATTEND Internal Medicine
DX: L02.213 Cutaneous abscess of chest wall (principal); F11.90 Opioid use, unspecified, uncomplicated; F11.23 Opioid dependence with withdrawal; R10.9 Unspecified abdominal pain; L02.415 Cutaneous abscess of right lower limb; Z91.040 Latex allergy status; F17.210 Nicotine dependence, cigarettes, uncomplicated; M25.451 Effusion, right hip; Z53.21 Procedure and treatment not carried out due to patient leaving prior to being seen by health care provider; F15.20 Other stimulant dependence, uncomplicated
CPT/HCPCS: 36415; 76536; 80053; 83605; 84484; 85025; 85610; 85730; 86140; 86703; 87040; 87522; 87641; 96365; 96366; 96375; 99283; A9270-GY; G0378; J1170; J2543; J3370